=== PATIENT | male | born 1995 | race Two or more races ===

== ENCOUNTER 2024-10-23 08:57 | Emergency (ER) | payer OTHER ==
[~2024-10-23] VITALS: Ht 172.7 cm; Wt 90.0 kg
[2024-10-23 09:00] VITALS: BP 129/87; PULSE 91; RESP 16; TEMP 98.3; O2SAT 100
[2024-10-23] MEDS ORDERED: LORAZEPAM 2MG/ML INJ IV ONE (10:00)
[2024-10-23] MEDS ORDERED: ASPIRIN 325MG EC TABLET PO ONE (10:00)
[2024-10-23 10:06] LABS: BASOPHILS % 0.3 % (0.0-2.0); DIFFERENTIAL COMMENT 0; EOSINOPHILS % 0.1 % (0.0-5.0); HEMATOCRIT. 41.3 % (42.0-52.0); HEMOGLOBIN. 13.6 g/dL (14.0-18.0); LYMPHOCYTES % 15.6 % (20.0-50.0); MEAN CORPUSCULAR HEMOGLOBIN 26.3 pg (28.0-32.0); MEAN CORPUSCULAR HGB CONC 33.1 g/dL (31.0-37.0); MEAN CORPUSCULAR VOLUME 79.4 fL (80.0-94.0); MONOCYTES % 1.9 % (2.0-8.0); NEUTROPHILS % 82.1 % (40.0-76.0); PLATELET 396 x1000/uL (130-400); RED CELL DISTRIBUTION WIDTH 16.1 % (11.6-14.6)
[2024-10-23 10:36] LABS: CARBON DIOXIDE 23 mEq/L (21-32); CHLORIDE 104 mEq/L (98-107); POTASSIUM 3.4 mEq/L (3.5-5.1); SODIUM 141 mEq/L (136-145)
[2024-10-23 10:37] LABS: CALCIUM 9.7 mg/dL (8.7-10.4)
[2024-10-23 10:42] LABS: CREATININE 1.1 mg/dL (0.6-1.3); GLUCOSE 105 mg/dL (70-105); UREA NITROGEN BLOOD 7 mg/dL (9-23)
[2024-10-23 10:43] LABS: ETHANOL BLOOD 240 mg/dL (<10)
[2024-10-23 10:49] LABS: TROPONIN I HIGH SENSITIVITY 5 ng/L (3.0-53)
== END 2024-10-23 10:57 | disposition left against medical advice (07) ==
LOC: ER 08:57
DX: R07.89 Other chest pain (principal); I25.2 Old myocardial infarction; I10 Essential (primary) hypertension; F31.9 Bipolar disorder, unspecified; Z98.890 Other specified postprocedural states; Z88.8 Allergy status to other drugs, medicaments and biological substances; Z86.59 Personal history of other mental and behavioral disorders
CPT/HCPCS: 36415; 80048; 80320; 83605; 84484; 85025; 93005; 99284; G0480